=== PATIENT | male | born 1945 | race African-American/Black ===

== ENCOUNTER 2016-05-26 10:11 | Outpatient (CLI) ==
[2015-07-07 12:14] VITALS: BMI 33.7
[2016-05-26 10:53] LABS: BILIRUBIN,URINE Negative (NEGATIVE); KETONES,URINE Trace (NEGATIVE); LEUKOCYTE ESTERASE ,URINE Negative (NEGATIVE); NITRITE,URINE Negative (NEGATIVE); PROTEIN,URINE 3+ (NEGATIVE); URINE, BLOOD Negative (NEGATIVE)
[2016-05-26 10:55] LABS: ADD URINE MICROSCOPIC YES
[2016-05-27 08:37] LABS: URINE CREATINE 137.7 mg/dL (Not Estab.)
== END 2016-05-26 10:12 | disposition home or self-care (01) ==
LOC: NONPT 10:11
PROVIDERS: ATTEND Family Medicine
DX: N19 Unspecified kidney failure (principal); Z79.899 Other long term (current) drug therapy
CPT/HCPCS: 81001; 82570; 84156

== ENCOUNTER 2017-04-18 13:11 | Outpatient (CLI) ==
[2015-07-07 12:14] VITALS: BMI 33.7
== END 2017-04-18 13:12 | disposition home or self-care (01) ==
LOC: NONPT 13:11
PROVIDERS: ATTEND Emergency Medicine
DX: R68.89 Other general symptoms and signs (principal)
CPT/HCPCS: 87502

== ENCOUNTER 2017-04-19 14:10 | Emergency (ER) ==
[2017-04-19 14:22] VITALS: BP 174/87; TEMP 97.8; BMI 70.8
--- NOTE | 2017-04-19 14:48 | ED.PDOC ---
General ED Provider: Dr. FAINA WASHINGTON Chief Complaint: Diabetes Stated Complaint: Infulenza B positive 04/18 - started on Tamiflu. Today BS up and feels poorly. Sent from [place] to ER. Time Seen by Physician: 14:30 Mode of Arrival: Ambulance Information Source: Intermediate, EMT Exam Limitations: No limitations Primary Care Provider: HARJINDER [facility] Nursing and Triage Documentation Reviewed and Agree: Yes Reviewed sepsis parameters & appropriate labs ordered?: Yes System Inflammatory Response Syndrome: Not Applicable Sepsis Protocol: For patient's 13 years and over: Temp is 96.8 and below OR 101 and greater Pulse >90 BPM Resp >20/minute Acutely Altered Mental Status Are patient's symptoms suggestive of a new infection, such as: -Pneumonia -Skin, Soft Tissue -Endocarditis -UTI -Bone, Joint Infection -Implantable Device -Acute Abdominal Infection -Wound Infection -Meningitis -Blood Stream Catheter Infection -Unknown System Inflammatory Response Syndrome: Not Applicable Review of Systems - Review Of Systems Constitutional: Reports: Malaise Eyes: Reports: No symptoms Ears, Nose, Mouth, Throat: Reports: No symptoms Respiratory: Reports: No symptoms All Other Systems: Reviewed and Negative Past Medical History - Past Medical History Previously Healthy: No (Intermediate patient with multiple issues) Endocrine: Reports: DM 1 Cardiovascular: Reports: Hypertension Respiratory: Reports: None Hematological: Reports: None Gastrointestinal: Reports: None Genitourinary: Reports: None Neuro/Psych: Reports: CVA Musculoskeletal: Reports: Other Cancer: Reports: None Other Pertinent Past Medical History: left below knee amp. and right toes amp. due to goldstein bite - Surgical History General Surgical History: Reports: Orthopedic - Family History Family History: Reports: Unknown - Social History Smoking Status: Never smoker Hx Substance Use: No Alcohol Screening: None - Immunizations Tetanus Shot up to Date: Yes Physical Exam - Physical Exam Appearance: Well-appearing Ill-appearing: Mild Pain Distress: None Eyes: WENDY, EOMI ENT: Oropharynx normal Neck: Supple Respiratory: Airway patent, Breath sounds clear, Breath sounds equal Cardiovascular: RRR, Pulses normal GI/: Soft, Nontender, Bowel sounds normal Musculoskeletal: Normal strength Skin: Warm, Dry, Normal color Neurological: Sensation intact, Motor intact, Alert, Oriented Psychiatric: Affect appropriate, Mood appropriate Physician Notification - Case Discussed Physician Notified: Dr Farah Time of Notification: 18:10 (Discussed improvement; back to [place]) Critical Care Note - Critical Care Note Total Time (mins): 30 Course - Course Hematology/Chemistry: 04/19/17 15:05 04/19/17 15:05 Orders, Labs, Meds: Lab Review 04/19/17 04/19/17 04/19/17 15:05 15:05 17:30 WBC 8.92 RBC 4.37 L Hgb 13.1 L Hct 38.5 L MCV 88.1 MCH 30.0 MCHC 34.0 RDW Coeff of Doreen 12.1 Plt Count 231 Immature Gran % (Auto) 2.2 Neut % (Auto) 79.9 Lymph % (Auto) 11.7 [place] % (Auto) 5.6 Eos % (Auto) 0.4 Baso % (Auto) 0.2 Immature Gran # (Auto) 0.2 Neut # (Auto) 7.1 H Lymph # (Auto) 1.0 [place] # (Auto) 0.5 Eos # (Auto) 0.0 Baso # (Auto) 0.0 Sodium 138 Potassium 4.7 Chloride 100 Carbon Dioxide 29 Anion Gap 13.7 BUN 14 Creatinine 0.96 Estimated GFR (MDRD) 94.00 BUN/Creatinine Ratio 14.58 Glucose 341 H Calcium 9.4 Total Bilirubin 0.3 AST 12 L ALT 12 Alkaline Phosphatase 96 Total Protein 7.4 Albumin 3.1 L Globulin 4.3 Albumin/Globulin Ratio 0.72 Urine Color Yellow Urine Clarity Slightly Urine pH 5.5 Ur Specific [place] >=1.030 Urine Protein 3+ Urine Glucose (UA) Negative Urine Ketones Trace Urine Blood Trace-intact Urine Nitrite Negative Urine Bilirubin Negative Urine Urobilinogen 1.0 Ur Leukocyte Esterase Negative Urine Microscopic RBC 5-10 Ur Squamous Epith Cells 0-2 Amorphous Sediment 2+ Urine Bacteria 1+ Orders Category Date Time Status CBC W/ AUTO DIFF Stat LAB 04/19/17 15:05 Completed COMPREHENSIVE METABOLIC PANEL Stat LAB 04/19/17 15:05 Completed URINALYSIS C & S IF INDICATED Stat LAB 04/19/17 17:30 Completed URINE CULTURE Stat LAB 04/19/17 17:30 Received Vital Signs: Temp Pulse Resp BP Pulse Ox 04/19/17 14:14 97.8 F 66 16 174/87 H 96 Departure - Departure Time of Disposition: 18:11 Disposition: HOME SELF-CARE Discharge Problem: Hyperglycemia due to type 2 diabetes mellitus Qualifiers: Diabetes mellitus tank terminal gauger insulin use: with tank terminal gauger use Qualified Code(s): E11.65 - Type 2 diabetes mellitus with hyperglycemia; Z79.4 - care home (current ) use of insulin; Z79.4 - care home (current) use of insulin; Z79.4 - care home (current) use of insulin; Z79.4 - care home (current) use of insulin Instructions: Managing Diabetes During Sick Days (ED) Condition: Stable Pt referred to PMD for follow-up: Yes (Follow with PCP) IPMP verified?: No (No narcotic prescribed) Additional Instructions: Resume usual medications. Follow with PCP Allergies/Adverse Reactions: Allergies Penicillins Adverse Reaction (Verified 04/19/17 14:34) tetanus toxoid, adsorbed Adverse Reaction (Verified 04/19/17 14:34) TAPE Adverse Reaction (Uncoded 04/20/15 11:16) Home Medications: Ambulatory Orders Simvastatin 10 mg PO DAILY 06/12/14 Tamsulosin HCl [Flomax] 0.4 mg PO DAILY 06/12/14 Insulin Glargine,Hum.rec.anlog [Lantus] 20 units SQ DAILY 04/20/15 Linagliptin [Tradjenta] 5 mg PO DAILY 07/07/15 Multivitamin [Multi-Vitamin Daily] 1 each PO DAILY 07/07/15 Acetaminophen [Tylenol] 650 mg PO Q6HR PRN 04/19/17 Albuterol Sulfate 1.25 mg INH TID 04/19/17 Amlodipine Besylate 10 mg PO DAILY 04/19/17 Bisacodyl [Dulcolax] 15 mg PO DAILY PRN 04/19/17 Clonidine HCl 0.1 mg pe PO BID 04/19/17 Insulin Lispro [Humalog] 2 units SQ TID 04/19/17 Insulin Lispro [Humalog] 14 units SQ DAILY 04/19/17 Mupirocin [Bactroban Ointment 1 Gram Applicator (ER)] 1 gm TP Q8HR 04/19/17 Oseltamivir Phosphate [Tamiflu] 75 cap PO BID 04/19/17 Prednisone 10 mg PO BID 04/19/17 Risperidone [Risperdal] 1 mg PO DAILY 04/19/17 Disposition Discussed With: Patient
== END 2017-04-19 19:11 | disposition home or self-care (01) ==
LOC: ED 14:10
DX: E11.65 Type 2 diabetes mellitus with hyperglycemia (principal); Z79.4 Long term (current) use of insulin; J10.1 Influenza due to other identified influenza virus with other respiratory manifestations; I10 Essential (primary) hypertension; Z79.899 Other long term (current) drug therapy; Z86.73 Personal history of transient ischemic attack (TIA), and cerebral infarction without residual deficits
CPT/HCPCS: 36415; 80053; 81001; 82962; 85025; 87086; 99283

== ENCOUNTER 2018-02-17 08:19 | Outpatient (CLI) | END 2018-02-17 08:20 | disposition home or self-care (01) | LOC: NONPT 08:19 | PROVIDERS: ATTEND General Practice | DX: Z51.81 Encounter for therapeutic drug level monitoring (principal); Z79.899 Other long term (current) drug therapy | CPT/HCPCS: 80053; 80061; 83036; 84439; 84443; 85025 ==

== ENCOUNTER 2018-10-26 12:04 | Outpatient (CLI) | payer OTHER | END 2018-10-26 12:05 | disposition home or self-care (01) | LOC: NONPT 12:04 | PROVIDERS: ATTEND General Practice | DX: Z79.899 Other long term (current) drug therapy (principal) | CPT/HCPCS: 80053; 85025 ==

== ENCOUNTER 2018-10-30 16:57 | Outpatient (CLI) | END 2018-10-30 16:58 | disposition home or self-care (01) | LOC: NONPT 16:57 | PROVIDERS: ATTEND General Practice | DX: R30.0 Dysuria (principal); R82.90 Unspecified abnormal findings in urine | CPT/HCPCS: 81001; 87086 ==